=== PATIENT | female | born 2000 | race Asian ===

== ENCOUNTER 2022-09-28 10:57 | Emergency (ER) | payer SELFPAY ==
[~2022-09-28] VITALS: Ht 147.3 cm; Wt 54.3 kg
[2022-09-28 11:26] LABS: BASOPHILS # (AUTO) 0.1 10^3/uL (0.0-0.1); BASOPHILS % (AUTO) 1 % (0-10); EOSINOPHILS # (AUTO) 0.1 10^3/uL (0.0-0.3); EOSINOPHILS % (AUTO) 2 % (0-10); HEMATOCRIT 41 % (35-52); HEMOGLOBIN 13.9 g/dL (11.5-16.0); LYMPHOCYTES # (AUTO) 2.6 10^3/uL (1.0-4.0); LYMPHOCYTES % (AUTO) 40 % (12-44); MEAN CORPUSCULAR HEMOGLOBIN 30 pg (25-34); MEAN CORPUSCULAR HGB CONC 34 g/dL (32-36); MEAN CORPUSCULAR VOLUME 88 fL (80-99); MEAN PLATELET VOLUME 9.4 fL (9.0-12.2); MONOCYTES # (AUTO) 0.5 10^3/uL (0.0-1.0); MONOCYTES % (AUTO) 7 % (0-12); NEUTROPHILS # (AUTO) 3.3 10^3/uL (1.8-7.8); NEUTROPHILS % (AUTO) 51 % (42-75); PLATELET COUNT 292 10^3/uL (130-400); WHITE BLOOD COUNT 6.5 10^3/uL (4.3-11.0)
[2022-09-28 11:28] LABS: BILIRUBIN,URINE NEGATIVE (NEGATIVE); CLARITY,URINE CLEAR; COLOR,URINE YELLOW; GLUCOSE, URINE (UA) NEGATIVE (NEGATIVE); KETONES,URINE NEGATIVE (NEGATIVE); LEUKOCYTE ESTERASE ,URINE NEGATIVE (NEGATIVE); NITRITE,URINE NEGATIVE (NEGATIVE); PH,URINE 5.5 (5-9); PROTEIN,URINE NEGATIVE (NEGATIVE)
[2022-09-28 11:36] LABS: BACTERIA,URINE TRACE /HPF; WBC,URINE 0-2 /HPF
--- NOTE | 2022-09-28 11:36 | Diagnostic Imaging Report ---
PROCEDURE: CT head wo r/o stroke. TECHNIQUE: Multiple contiguous axial images were obtained through the brain without the use of intravenous contrast. Auto Exposure Controls were utilized during the CT exam to meet ALARA standards for radiation dose reduction. INDICATION: Left-sided numbness. Headache. Hearing loss. COMPARISON: None. FINDINGS: No intracranial hemorrhage, mass effect, hydrocephalus, or extra-axial fluid collections. No CT evidence of a territorial infarction. Osseous structures are intact. Visualized paranasal sinuses and mastoids are clear. IMPRESSION: No acute intracranial CT findings. Dictated by: Dictated on workstation # [id number]
--- NOTE | 2022-09-28 11:41 | ED Neurological Problem ---
General Chief Complaint: Neuro-Stroke Like Symptoms Stated Complaint: NUMBNS LT SIDE BODY,PRESSURE HEADACHE,HEARING LOSS Nursing Triage Note: Patient reports she has had a headache for 3 weeks. States she has had weakness in her left wrist and left knee for several weeks and is wearing braces for support. She states she began having left sided facial/arm/leg numbness/tingling on Tuesday. Source: patient (RASHMI TAMAYO MD) History of Present Illness Date Seen by Provider: Sep 28, 2022 Time Seen by Provider: 11:04 Initial Comments 22-year-old female presenting with complaints of 3 to 4 weeks of tightness and pressure in her head and several weeks of feeling like her left wrist and knee were weak. She is wearing a brace on left of those joints to help with strength and stability. 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 She states on Tuesday, September 26 she felt like she developed numbness and tingling to the left side of her body from her face, arm, leg. That has waxed and waned in intensity over the last 48 hours but is still present today. She denies any fall or head injury. She has no prior history of symptoms like this. She does not have a primary care provider currently. She states her last menstrual period was approximately 2 weeks ago and she has had some cramping since then. She denies pain or burning with urination, fever, chills, nausea, vomiting, chest pain, cough. She also reports feeling like something went in her left ear about 2 months ago when on vacation. She had pain and bleeding at the time. Since then she has tried some ear drops over the counter but still has decreased hearing to left side. Severity: moderate Associated Symptoms: No confusion, No fatigue, No fever/chills, No insomnia, No loss of consciousness, No muscle spasms, No nausea/vomiting; numbness in leg s/feet (tingling to left side of body); No ringing in ears, No seizures, No sleepy, No slurred speech; tingling in legs/feet; No trouble walking, No vision changes; weakness (feels like left wrist and left knee are weaker than normal for last few weeks) (RASHMI TAMAYO MD) Allergies and Home Medications Allergies Coded Allergies: No Known Drug Allergies (Unverified , 09/28/22) Patient Home Medication List Home Medication List Reviewed: Yes (RASHMI TAMAYO MD) Review of Systems Review of Systems Constitutional: no symptoms reported Eyes: Denies Blurred Vision, Denies Photophobia, Denies Vision Changes Ears, Nose, Mouth, Throat: see HPI Respiratory: no symptoms reported Cardiovascular: no symptoms reported Gastrointestinal: no symptoms reported Genitourinary: no symptoms reported Musculoskeletal: no symptoms reported Skin: No rash Psychiatric/Neurological: See HPI (RASHMI TAMAYO MD) Past Hjeodgs-Mrddmw-Zkzlgf Hx Patient Social History Tobacco Use?: No Substance use?: No Alcohol Use?: No Pt feels they are or have been: No (RASHMI TAMAYO MD) Past Medical History Surgeries: No Last Menstrual Period: Sep 14, 2022 (RASHMI TAMAYO MD) Physical Exam Vital Signs Vital Signs - First Documented 09/28/22 11:10 Temp 36.3 Pulse 108 Resp 16 B/P (MAP) 146/61 (89) Pulse Ox 99 O2 Delivery Room Air (YARELIS WHITLEY MD) Vital Signs Capillary Refill : Less Than 3 Seconds (RASHMI TAMAYO MD) Height, Weight, BMI Height: '" Weight: lbs. oz. kg; 25.00 BMI Method: General Appearance: WD/WN, no apparent distress HEENT: PERRL/EOMI, normal ENT inspection, TMs normal, pharynx normal Neck: non-tender, full range of motion, supple, normal inspection Respiratory: chest non-tender, lungs clear, normal breath sounds, no respiratory distress, no accessory muscle use Cardiovascular: normal peripheral pulses, regular rate, rhythm Gastrointestinal: normal bowel sounds, non tender, soft, no pulsatile mass Extremities: normal range of motion, non-tender, normal capillary refill, other (wearing a velcro foam splint to left wrist and hinged knee brace to left knee) Neurologic/Psychiatric: alert, oriented x 3 Crainal Nerves: normal speech, PERRL; No facial asymmetry, No facial droop; facial paresthesias (reports left side of face feels more numb compared to the right), hearing deficit (L) (states she can not hear as well out of left ear) Coordination/Gait: normal gait Motor/Sensory: no motor deficit, no pronator drift, sensory deficit (decreased sensation left face, arm, leg) Skin: normal color, warm/dry (RASHMI TAMAYO MD) Stroke Onset of Symptoms Date of Onset of Symptoms: Sep 26, 2022 (RASHMI TAMAYO MD) NIH Stroke Scale Assessment Select: Initial Level of Consciousness: 0=Alert (0), Level of Consciousness- Questions: 0=Answers both month/age (0), LOC Commands: 0=Performs both tasks (0), Gaze: Normal (0), Visual Lopez: 0=No visual loss (0), Facial Movement (Facial Paresis): 0=Normal symmetrical mnt (0), Motor Function-Arms Right: 0=No drift (0), Motor Function-Arms Left: 0=No drift (0), Motor Function-Legs Right: 0=No drift (0), Motor Function-Legs Left: 0=No drift (0), Limb Ataxia: 0=Absent (0), Sensory: 1=Mild to Moderate loss (1), Best Language: 0=No aphasia (0), Dysarthria: 0=Normal (0), Extinction & Inattention: 0=No abnormality (0), Total: 1 Stroke Thrombolytic Exclusion Age 18 or Over: Yes Acute intenal hemorrhage: No History of CVA: No Uncontrolled Coagulation Defec: No Intracranial Hemorrhage: No Severe Hypertension: No GI or Bleed: No Subarachnoid Hemorrhage: No Intracranial Neoplasm/Aneurysm: No Oral Anticoagulants: No Surgery or Trauma: No Puncture of Non-Compressible V: No Recent CPR: No Diabetic Hemorrhagic Retinopat: No Organ Biopsy: No Recent Obstetric Delivery: No Glucose: No Significant Hepatic Dysfunctio: No NIH Stoke Scale >22: No Bacterial Endocarditis: No Pericarditis: No Improving Symptoms: No Platelets: No TPA Contraindication: Yes (RASHMI TAMAYO MD) IV - TPa Received IV - TPa Procedure Performed?: No (Symptom onset greater than 48 hours) (RASHMI TAMAYO MD) Progress/Results/Core Measures Results/Orders Lab Results Laboratory Tests Test 09/28/22 11:10 09/28/22 11:20 09/28/22 11:35 Range/Units Urine Color YELLOW Urine Clarity CLEAR Urine pH 5.5 5-9 Urine Specific [place] 1.010 L 1.016-1.022 Urine Protein NEGATIVE NEGATIVE Urine Glucose (UA) NEGATIVE NEGATIVE Urine Ketones NEGATIVE NEGATIVE Urine Nitrite NEGATIVE NEGATIVE Urine Bilirubin NEGATIVE NEGATIVE Urine Urobilinogen 0.2 < = 1.0 MG/DL Urine Leukocyte Esterase NEGATIVE NEGATIVE Urine RBC (Auto) NEGATIVE NEGATIVE Urine RBC NONE /HPF Urine WBC 0-2 /HPF Urine Squamous Epithelial Cells 2-5 /HPF Urine Crystals NONE /LPF Urine Bacteria TRACE /HPF Urine Casts NONE /LPF Urine Mucus NEGATIVE /LPF Urine Culture Indicated NO Urine Opiates Screen NEGATIVE NEGATIVE Urine Oxycodone Screen NEGATIVE NEGATIVE Urine Methadone Screen NEGATIVE NEGATIVE Urine Propoxyphene Screen NEGATIVE NEGATIVE Urine Barbiturates Screen NEGATIVE NEGATIVE Ur Tricyclic Antidepressants Screen NEGATIVE NEGATIVE Urine Phencyclidine Screen NEGATIVE NEGATIVE Urine Amphetamines Screen NEGATIVE NEGATIVE Urine Methamphetamines Screen NEGATIVE NEGATIVE Urine Benzodiazepines Screen NEGATIVE NEGATIVE Urine Cocaine Screen NEGATIVE NEGATIVE Urine Cannabinoids Screen NEGATIVE NEGATIVE White Blood Count 6.5 4.3-11.0 10^3/uL Red Blood Count 4.67 3.80-5.11 10^6/uL Hemoglobin 13.9 11.5-16.0 g/dL Hematocrit 41 35-52 % Mean Corpuscular Volume 88 80-99 fL Mean Corpuscular Hemoglobin 30 25-34 pg Mean Corpuscular Hemoglobin Concent 34 32-36 g/dL Red Cell Distribution Width 12.0 10.0-14.5 % Platelet Count 292 130-400 10^3/uL Mean Platelet Volume 9.4 9.0-12.2 fL Immature Granulocyte % (Auto) 0 % Neutrophils (%) (Auto) 51 42-75 % Lymphocytes (%) (Auto) 40 12-44 % Monocytes (%) (Auto) 7 0-12 % Eosinophils (%) (Auto) 2 0-10 % Basophils (%) (Auto) 1 0-10 % Neutrophils # (Auto) 3.3 1.8-7.8 10^3/uL Lymphocytes # (Auto) 2.6 1.0-4.0 10^3/uL Monocytes # (Auto) 0.5 0.0-1.0 10^3/uL Eosinophils # (Auto) 0.1 0.0-0.3 10^3/uL Basophils # (Auto) 0.1 0.0-0.1 10^3/uL Immature Granulocyte # (Auto) 0.0 0.0-0.1 10^3/uL Prothrombin Time 12.7 12.2-14.7 SEC INR Comment 0.9 0.8-1.4 Activated Partial Thromboplast Time 32 24-35 SEC Sodium Level 135 135-145 MMOL/L Potassium Level 3.8 3.6-5.0 MMOL/L Chloride Level 101 98-107 MMOL/L Carbon Dioxide Level 22 21-32 MMOL/L Anion Gap 12 5-14 MMOL/L Blood Urea Nitrogen 16 7-18 MG/DL Creatinine 0.96 0.60-1.30 MG/DL Estimat Glomerular Filtration Rate 85 BUN/Creatinine Ratio 17 Glucose Level 89 70-105 MG/DL Calcium Level 9.6 8.5-10.1 MG/DL Corrected Calcium 9.3 8.5-10.1 MG/DL Total Bilirubin 0.3 0.1-1.0 MG/DL Aspartate Amino Transf (AST/SGOT) 32 5-34 U/L Alanine Aminotransferase (ALT/SGPT) 19 0-55 U/L Alkaline Phosphatase 55 40-136 U/L Troponin I < 0.30 <0.30 NG/ML Total Protein 7.8 6.4-8.2 GM/DL Albumin 4.4 3.2-4.5 GM/DL Glucometer 74 70-110 MG/DL (YARELIS WHITLEY MD) My Orders Orders - YARELIS WHITLEY MD Mra Head W/O Contrast (09/28/22 13:17) Mri Brain W/Wo Contrast (09/28/22 13:25) Gadoterate Inj (Radiology) ([place] In (09/28/22 13:45) (YARELIS WHITLEY MD) Medications Given in ED (YARELIS WHITLEY MD) Vital Signs/I&O 09/28/22 09/28/22 09/28/22 09/28/22 11:10 13:53 14:50 17:40 Temp 36.3 36.3 Pulse 108 98 75 78 Resp 16 16 16 16 B/P (MAP) 146/61 (89) 116/71 (86) 113/70 (84) 118/89 Pulse Ox 99 99 98 98 O2 Delivery Room Air Room Air Room Air Room Air (YARELIS WHITLEY MD) Blood Pressure Mean: 89 Progress Progress Note #1: Progress Note Potential diagnosis of acute stroke, intracranial hemorrhage, intracranial mass, spinal cord abscess, spinal cord infection, peripheral neuropathy. With patient having complaint to the clerk operator of left-sided numbness and tingling with headache patient had a CT scan of the head ordered to evaluate for possible stroke and she was taken to the radiology department prior to my initial exam and history. When patient returned to the room by obtain more history from her and found out that she had had symptoms for over 48 hours. Her symptoms have waxed and waned in intensity but are still present. Her NIH stroke scale is 1 with decreased sensation to the left side of her body but no other positive findings on NIH stroke scale. Obtain peripheral IV access and send labs for complete blood count, comprehensive metabolic profile, coagulation factors, urinalysis with bedside urine , urine drug screen. Electrocardiogram to evaluate heart rate and rhythm. Placed on cardiac manager monitoring and initially her heart rate was 108 and a sinus rhythm but patient admits to being anxious and states she just had coffee prior to coming to the emergency department. Oxygen saturation was 98 to 99% on room air and she was afebrile. Her blood pressure is 97/84. On my personal review and interpretation of her CT scan of head without contrast she has no acute intracranial mass or ischemic changes. Progress Note #2: Time: 11:43 Progress Note I reviewed the radiologist report on the CT scan of the head without contrast and they did not see any acute intracranial process. On my personal interpretation and review of her electrocardiogram she shows a sinus rhythm without ST elevation or ischemic changes. Progress Note #3: Time: 11:57 Progress Note Complete blood count does not show elevation of her white blood cell count as it is at 6.5. She has a normal hemoglobin of 13.9 and platelets of 292. Her coagulation factors were not elevated to indicate coagulopathy. She had no signs of infection on her urinanalysis and specific gravity was 1.010. Her urine drug screen was negative for all substances. Her Accu-Chek was 74. Comprehensive metabolic profile pending otherwise. Progress Note #4: Time: 12:45 Progress Note I called stroke neurologist for consult on the patient since she was still complaining of left-sided tingling and numbness however her CT scan of the head did not show any acute abnormalities to account for her symptoms. I spoke with Dr. Pak, wedding transportation driver stroke neurologist for [facility]. I reviewed with her the presentation of the patient with symptoms for over 48 hours as well as mild headache and tightness in her head. The patient had a NIH stroke scale of 1 with 1 off for decree sensation to the left side of her body. Her labs did not show any acute significant abnormality and her CT scan of the head was without acute abnormality as well. She recommended the patient have an MRI with and without contrast as well as an MR venogram to look for venous sinus thrombosis or any acute abnormality to account for her symptoms. In the meantime she recommended migraine treatment so patient was given a dose of Toradol 15 mg IV. 1256 I updated the patient and reviewed things with her. I spoke with Dr. Whitley at the ED in [facility] to try and help facilitate having the patient go to [place] for MRI testing as directed by Neurology, Dr. Robertson. He wanted to check with MRI to ensure that they were available to test before having the patient go to [place] ED. 1318 Dr. Whitley called back to say he had placed an order for MRI but the server support technician wants to do her test at 1445 so patient needs to be there by 1430. I worked on filling out transfer paperwork and we advised the patient she needs to go directly to [place] ED and they will work on getting her MRI done. 1404 Patient left the registration desk to go to [place]. patent clerk advised that she had to have her part done for the registration before she could go to [place] ED to finish her work up. I again stressed to patient she needs to go directly to the ED and hurry there to get there in time for the test to be done. (RASHMI TAMAYO MD) Progress Note : Progress Note This patient was transferred to the [place] location to facilitate MRI studies. I received report from Dr. Tamayo at the [place] location. Patient was taken directly to MRI. After she returned from MRI she was evaluated me personally. I found her to be grossly neurologically intact with only subtle sensory deficit on the left face and the left forearm. Sensation was intact but reduced when compared to the right. MRI studies were unremarkable. I discussed the case with Dr. Youngblood, stroke neurologist at [facility]. She recommended further evaluation with MRI of the cervical spine should the patient have persistent or worsening symptoms. Patient felt like her symptoms were notably improving after she received the Toradol in [place]. We discussed the history of her illness in more depth. She reported having COVID 19 in the May/June timeframe and then traveling to the [facility] in June. Her headache started after returning from the [facility]. It is possible the patient developed some type of encephalitis and/or paresthesia related to viral illness either acquired from traveling or as residual symptoms from COVID-19. This was discussed with the patient along with the recommendation for MRI of the cervical spine. By the time of this recommendation, MRI was no longer available. This may be performed on an outpatient basis or at a later time in the emergency room if symptoms worsen. See discharge instructions for further discussion. Patient was strongly urged to establish with a primary care provider soon as possible. Length of stay was prolonged significantly due to the transfer from one ER location to another as well as a technical error in the reporting of MRI which required a personal call to the radiology department and transfer to [facility] on. (YARELIS WHITLEY MD) Initial ECG Impression Date: Sep 28, 2022 Initial ECG Impression Time: 11:38 Initial ECG Rate: 89 Initial ECG Rhythm: Normal Sinus Initial ECG Comparisson: No Previous ECG Available Comment On my personal interpretation and review of the electrocardiogram she has a normal sinus rhythm with a heart rate of 89 bpm. DE interval [address] elevation. QT interval 365 ms with a QTc interval 412 ms. There is no prior tracing available for comparison. (RASHMI TAMAYO MD) Diagnostic Imaging Diagonstic Imaging: CT Plain Films/CT/US/NM/MRI: head Comments NAME: DEEJAY ALANIZ [facility] REC#: [id number] PT STATUS: REG ER : 2000 PHYSICIAN: RASHMI TAMAYO MD ADMIT DATE: 09/28/22/ER FS Draft Date of Exam:09/28/22 CT HEAD WO-R/O STROKE PROCEDURE: CT head wo r/o stroke. TECHNIQUE: Multiple contiguous axial images were obtained through the brain without the use of intravenous contrast. Auto Exposure Controls were utilized during the CT exam to meet ALARA standards for radiation dose reduction. INDICATION: Left-sided numbness. Headache. Hearing loss. COMPARISON: None. FINDINGS: No intracranial hemorrhage, mass effect, hydrocephalus, or extra-axial fluid collections. No CT evidence of a territorial infarction. Osseous structures are intact. Visualized paranasal sinuses and mastoids are clear. IMPRESSION: No acute intracranial CT findings. Dictated on workstation # [id number] Dict: 09/28/22 1130 Trans: 09/28/22 1135 [id number] Interpreted by: CARLOS SIMEON MD Electronically signed by: Reviewed: Reviewed by Me (Reviewed radiologist report at 1143) Diagonstic Imaging: MRI Plain Films/CT/US/NM/MRI: other (brain) Comments [facility] [place] NAME: DEEJAY ALANIZ [facility] REC#: [id number] PT STATUS: REG ER : 2000 PHYSICIAN: YARELIS WHITLEY MD ADMIT DATE: 09/28/22/ER Signed Date of Exam:09/28/22 MRA HEAD W/O CONTRAST PROCEDURE: MR venogram of the head without contrast. INDICATION: Left-sided weakness and headache. COMPARISON: Brain MRI performed the same day and CT head from the same day. TECHNIQUE: 2D [id number] MR venography of the head was acquired and reformatted into 3D reconstructions. FINDINGS: There is normal flow within the superior sagittal sinus and within the right transverse and sigmoid sinus. The internal cerebral veins and the straight sinus also appear to have flow. 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 The corresponding MRI also demonstrates patent contrast opacification of this small left-sided system with no abnormal signal on FLAIR or gradient imaging. IMPRESSION: 1. No MR evidence of dural venous sinus thrombosis. 2. 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 There are however no corroborating findings on prior MRI to suggest thrombus. This sinus demonstrates normal contrast opacification on the brain MRI. Dictated by: Dictated on workstation # [id number] Dict: 09/28/22 1525 Trans: 09/28/22 1652 [id number] Interpreted by: KALEIGH PETERSEN MD Electronically signed by: KALEIGH PETERSEN MD 09/28/22 [id number] (RASHMI TAMAYO MD) Diagonstic Imaging: MRI Plain Films/CT/US/NM/MRI: head Comments NAME: DEEJAY ALANIZ [facility] REC#: [id number] PT STATUS: DEP ER : 2000 PHYSICIAN: YARELIS WHITLEY MD ADMIT DATE: 09/28/22/ER Signed Date of Exam:09/28/22 MRI BRAIN W/WO CONTRAST MRI brain with and without contrast Indication: Left-sided weakness, numbness and headache. Comparison: CT head performed same day. Technique: Multiplanar, multisequence MRI of the brain was performed with and without contrast. Findings: There is no diffusion restriction present to suggest acute ischemia. There is no MR evidence of intracranial hemorrhage. There is no intracranial mass effect demonstrated. There is no abnormal extra-axial collection. Francis and white matter signal characteristics appear within normal limits. The ventricular system is appropriate in size and configuration. The basilar cisterns are patent. Posterior fossa is unremarkable. There is normal alignment of the craniocervical junction. Pituitary gland is unremarkable. The pineal region appears normal. Postcontrast imaging demonstrates no MR evidence of pathologic intracranial enhancement. No orbital abnormality evident on this nondedicated exam. The paranasal sinuses and mastoid air cells are clear. Expected arterial and dural venous sinus flow voids are preserved. There is normal contrast-enhancement of the dural venous sinuses. 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 Impression: No MR evidence of an acute intracranial abnormality. There is no evidence of ischemia, hemorrhage, parenchymal signal abnormality, intracranial mass effect, hydrocephalus, or pathologic intracranial enhancement. Dictated by: Dictated on workstation # [id number] Dict: 09/28/22 1553 Trans: 09/28/22 1554 [facility] [id number] Interpreted by: KALEIGH PETERSEN MD Electronically signed by: KALEIGH PETERSEN MD 09/28/22 [id number] (YARELIS WHITLEY MD) Departure Impression Primary Impression: Tingling of left upper extremity and left side of face Additional Impressions: Numbness and tingling of left upper and lower extremity Decreased hearing of left ear Disposition: 30 STILL A PATIENT Condition: Stable Departure-Patient Inst. Decision time for Depature: 18:23 (YARELIS WHITLEY MD) Patient Instructions: Paresthesia (DC) Add. Discharge Instructions: Follow-up with your primary care provider as soon as possible. Per the [facility] stroke neurology team, you should pursue MRI of the cervical spine if symptoms persist or worsen. You may take Ibuprofen up to 400 mg every 6 hours and/or Tylenol (acetaminophen) up to 1000 mg every 6 hours as needed for headache or other pain. Return to the ER promptly if you develop additional neurologic symptoms such as weakness of a body part, speech problems, changes in vision, confusion, etc. All discharge instructions reviewed with patient and/or family. Voiced und erstanding. RASHMI TAMAYO MD Sep 28, 2022 11:41 YARELIS WHITLEY MD Sep 28, 2022 18:26
[2022-09-28 11:44] LABS: AMPHETAMINE SCREEN, URINE NEGATIVE (NEGATIVE); BARBITURATE SCREEN URINE NEGATIVE (NEGATIVE); BENZODIAZEPINES SCREEN URINE NEGATIVE (NEGATIVE); CANNABINOID SCREEN, URINE NEGATIVE (NEGATIVE); COCAINE SCREEN URINE NEGATIVE (NEGATIVE); METHADONE STAT NEGATIVE (NEGATIVE); OPIATE SCREEN URINE NEGATIVE (NEGATIVE); OXYCODONE STAT NEGATIVE (NEGATIVE); PROPOXYPHENE STAT NEGATIVE (NEGATIVE); TRICYCLIC ANTIDEPRESSANTS SCRE NEGATIVE (NEGATIVE)
[2022-09-28 11:49] LABS: INR 0.9 (0.8-1.4); PROTHROMBIN TIME PATIENT 12.7 SEC (12.2-14.7)
[2022-09-28 11:59] LABS: POTASSIUM 3.8 MMOL/L (3.6-5.0); SODIUM 135 MMOL/L (135-145)
[2022-09-28 12:00] LABS: ALANINE AMINOTRANSFERASE 19 U/L (0-55); ALKALINE PHOSPHATASE 55 U/L (40-136); BILIRUBIN,TOTAL 0.3 MG/DL (0.1-1.0); BUN/CREATININE RATIO 17; CALCIUM 9.6 MG/DL (8.5-10.1); CARBON DIOXIDE 22 MMOL/L (21-32); CHLORIDE 101 MMOL/L (98-107); CREATININE SERUM 0.96 MG/DL (0.60-1.30); GFR ESTIMATED 85; GLUCOSE 89 MG/DL (70-105)
[2022-09-28 12:01] LABS: ALBUMIN 4.4 GM/DL (3.2-4.5); TOTAL PROTEIN 7.8 GM/DL (6.4-8.2)
[2022-09-28] MEDS ORDERED: KETOROLAC 15 MG/ML VIAL IVP STA (13:11)
[2022-09-28] MEDS ORDERED: GADOTERATE 0.5 MMOL/ML (CLARISCAN) 15 ML VIAL IV ONE (13:45)
--- NOTE | 2022-09-28 16:14 | Diagnostic Imaging Report ---
PROCEDURE: MR venogram of the head without contrast. INDICATION: Left-sided weakness and headache. COMPARISON: Brain MRI performed the same day and CT head from the same day. TECHNIQUE: 2D [id number] MR venography of the head was acquired and reformatted into 3D reconstructions. FINDINGS: There is normal flow within the superior sagittal sinus and within the right transverse and sigmoid sinus. The internal cerebral veins and the straight sinus also appear to have flow. 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 The corresponding MRI also demonstrates patent contrast opacification of this small left-sided system with no abnormal signal on FLAIR or gradient imaging. IMPRESSION: 1. No MR evidence of dural venous sinus thrombosis. 2. 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 There are however no corroborating findings on prior MRI to suggest thrombus. This sinus demonstrates normal contrast opacification on the brain MRI. Dictated by: Dictated on workstation # [id number]
[2022-09-28 17:40] VITALS: BP 118/89
--- NOTE | 2022-09-29 07:10 | Diagnostic Imaging Report ---
MRI brain with and without contrast Indication: Left-sided weakness, numbness and headache. Comparison: CT head performed same day. Technique: Multiplanar, multisequence MRI of the brain was performed with and without contrast. Findings: There is no diffusion restriction present to suggest acute ischemia. There is no MR evidence of intracranial hemorrhage. There is no intracranial mass effect demonstrated. There is no abnormal extra-axial collection. Francis and white matter signal characteristics appear within normal limits. The ventricular system is appropriate in size and configuration. The basilar cisterns are patent. Posterior fossa is unremarkable. There is normal alignment of the craniocervical junction. Pituitary gland is unremarkable. The pineal region appears normal. Postcontrast imaging demonstrates no MR evidence of pathologic intracranial enhancement. No orbital abnormality evident on this nondedicated exam. The paranasal sinuses and mastoid air cells are clear. Expected arterial and dural venous sinus flow voids are preserved. There is normal contrast-enhancement of the dural venous sinuses. 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 Impression: No MR evidence of an acute intracranial abnormality. There is no evidence of ischemia, hemorrhage, parenchymal signal abnormality, intracranial mass effect, hydrocephalus, or pathologic intracranial enhancement. Dictated by: Dictated on workstation # [id number]
== END 2022-09-28 18:41 | disposition still patient (30) ==
LOC: ER FS 11:03 → ER 18:41
DX: R20.2 Paresthesia of skin (principal); R20.0 Anesthesia of skin; H91.92 Unspecified hearing loss, left ear; R51.9 Headache, unspecified; Z86.16 Personal history of COVID-19
CPT/HCPCS: 36415; 70450; 70544; 70553; 80053; 80306; 81000; 82947; 84484; 84703; 85025; 85610; 85730; 93005; 93041